=== PATIENT | female | born 1975 | race Caucasian/White ===

== ENCOUNTER 2017-09-24 10:49 | Emergency (ER) | payer OTHER ==
[2017-09-24 13:06] LABS: Bilirubin Negative (Negative); Blood, Urine Small (Negative); Clarity CLEAR (Clear); Glucose, Urine (Dipstick) Negative (Negative); Leukocyte Negative (Negative); Nitrite Negative (Negative); Protein, Urine (Dipstick) Negative (Neg-Trace); Specific Gravity, Urine 1.023 (1.002-1.036); Urobilinogen 0.2 mg/dL (0.2-1.0)
[2017-09-24 13:08] LABS: Pregnancy Test - Urine (BHCG) Negative (Negative); Pregu Control Background? CLEAR/WHITE (CLR/WHITE); Pregu Control Bar Appear? YES (CONTROL BAR); Specific Gravity 1.023 (1.002-1.036)
[2017-09-24 13:13] LABS: Bacteria/HPF 1+ HPF (None Seen); Hyaline Casts/LPF 0-3 HYALINE CAST LPF (0-3 Hyaline); Pathc Cast-AUWi Flag 1.01 (0-2.49); Squamous Epithelial 0-3 HPF (0-3); WBC/HPF 0-3 HPF (0-3)
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
== END 2017-09-24 14:22 | disposition left against medical advice (07) ==
LOC: ERS 10:49
DX: M79.652 Pain in left thigh (principal); M79.651 Pain in right thigh; V49.40XA Driver injured in collision with unspecified motor vehicles in traffic accident, initial encounter
CPT/HCPCS: 74176; 81003; 81015; 81025; 87086; 87186

== ENCOUNTER 2018-04-02 14:57 | Emergency (ER) | payer OTHER, SELFPAY ==
[2018-04-02] MEDS ORDERED: Ketorolac Tromethamine 30 MG/ML VIAL ONE (16:54)
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
== END 2018-04-02 17:15 | disposition home or self-care (01) ==
LOC: ERS 14:57
DX: M25.512 Pain in left shoulder (principal); M54.6 Pain in thoracic spine; E03.9 Hypothyroidism, unspecified; Z79.899 Other long term (current) drug therapy; V43.52XA Car driver injured in collision with other type car in traffic accident, initial encounter
CPT/HCPCS: 96372; J1885

== ENCOUNTER 2020-12-20 03:33 | Emergency (ER) | payer OTHER ==
[2020-12-20] MEDS ORDERED: Ketorolac Tromethamine 30 MG/ML VIAL ONE (03:56)
== END 2020-12-20 05:30 | disposition home or self-care (01) ==
LOC: ERS 03:33
DX: S39.012A Strain of muscle, fascia and tendon of lower back, initial encounter (principal); M62.830 Muscle spasm of back; E03.9 Hypothyroidism, unspecified; V43.52XA Car driver injured in collision with other type car in traffic accident, initial encounter; Y92.59 Other trade areas as the place of occurrence of the external cause
CPT/HCPCS: 96372; 99283; J1885

== ENCOUNTER 2022-07-07 08:53 | Emergency (ER) | payer OTHER, SELFPAY | END 2022-07-07 10:36 | disposition home or self-care (01) | LOC: ERS 08:53 | DX: U07.1 COVID-19 (principal); J00 Acute nasopharyngitis [common cold]; E03.9 Hypothyroidism, unspecified | CPT/HCPCS: 99283 ==

== ENCOUNTER 2024-12-30 12:56 | Outpatient (CLI) | payer OTHER | END 2024-12-30 12:57 | disposition home or self-care (01) | LOC: ULT 12:56 | PROVIDERS: ATTEND Family Medicine | DX: N92.4 Excessive bleeding in the premenopausal period (principal); D25.9 Leiomyoma of uterus, unspecified | CPT/HCPCS: 76856 ==